=== PATIENT | male | born 1990 | race Caucasian/White ===

== ENCOUNTER 2020-05-04 15:11 | Emergency (ER) | payer SELFPAY ==
[~2020-05-04] VITALS: Ht 175.3 cm; Wt 77.3 kg
[~2020-05-04 15:11] MED LIST: CEPHALEXIN500 M1 PO; DOXYCYCLINE 10100 MG PO; FLEXERIL10 MG PO; HYDROCODONE BIT1 TA3 PO; LORTAB 5/500 501 TAB PO; MOTRIN 600600 MG/TAB PO; MOTRIN 800800 MG/TAB PO; NAPROXEN EC500 MG PO; NO HOME MEDICATIONS; ZITHROMAX Z PA250 MG PO
[2020-05-04 15:41] VITALS: TEMP 98.6
[2020-05-04] MEDS ORDERED: PERCOCET 325 MG1 TA2 PO ×2 (19:02→19:16)
[2020-05-04] MEDS ORDERED: AMOXICILLIN 50500 MG PO ×3 (19:02→19:29)
[2020-05-04] MEDS ORDERED: NAPROSYN500 MG PO ×3 (19:24→19:29)
[2020-05-04 19:35] VITALS: BP 130/64; PULSE 107
== END 2020-05-04 19:35 | disposition home or self-care (01) ==
LOC: COL.ER 15:11
DX: K08.89 Other specified disorders of teeth and supporting structures (principal); K03.81 Cracked tooth; F17.210 Nicotine dependence, cigarettes, uncomplicated

== ENCOUNTER 2020-06-05 21:07 | Emergency (ER) | payer SELFPAY ==
[~2020-06-05] VITALS: Ht 175.3 cm; Wt 84.1 kg
[~2020-06-05 21:07] MED LIST changes: +AMOXICILLIN 50500 MG PO; +NAPROSYN500 MG PO; +PERCOCET 325 MG1 TA2 PO
[2020-06-05 21:14] VITALS: TEMP 98.3
[2020-06-05 22:19] LABS: COLLECTION METHOD CLEAN CATCH
[2020-06-05 22:24] LABS: BASO % 0.3 % (0.0-2.0); EOS # 0.2 (0.0-0.7); EOS % 1.4 % (0-4.0); GRAN # 6.1 (1.4-6.5); GRAN % 57.2 % (42.2-75.2); HEMATOCRIT 44.6 % (42.0-52.0); HEMOGLOBIN 14.9 g/dl (13.5-18.0); LYMPH # 3.4 (1.2-3.4); MEAN CELL VOLUME 91 fl (80.0-100.0); MEAN CORPUSCULAR HEMOGLOBIN 31 pg (27.0-31.0); MEAN CORPUSCULAR HGB CONC 33 g/dl (33.0-37.0); MEAN PLATELET VOLUME 10.3 fl (7.4-10.4); MONO # 0.8 (0.1-0.6); MONO % 7.8 % (1.7-9.3); PLATELET COUNT 309 K/mm3 (130-400); RED BLOOD COUNT 4.89 M/mm3 (4.20-5.60); REDCELL DISTRIBUTION WIDTH-CV 13.2 % (11.5-14.5)
[2020-06-05 22:26] LABS: PH 5 (5-8); SQUAMOUS EPITHELIAL None Seen /hpf; URINE APPEARANCE Clear; URINE BACTERIA None Seen /hpf; URINE BILIRUBIN Negative (NEGATIVE); URINE BLOOD Negative (NEGATIVE); URINE COLOR Straw; URINE GLUCOSE Negative (NEGATIVE); URINE KETONE Negative (NEGATIVE); URINE LEUKOCYTE ESTERASE Negative (NEGATIVE); URINE NITRATE Negative (NEGATIVE); URINE PROTEIN(semi-quant) Negative (NEGATIVE); URINE RBC 0-2 /hpf; URINE UROBILINOGEN Negative (NEGATIVE)
[2020-06-05 22:37] LABS: ALCOHOL(ethanol),MEDICAL 146 mg/dL
[2020-06-05 22:39] LABS: BLOOD UREA NITROGEN 15 mg/dL (9-20); CREATININE, serum 0.9 (0.66-1.25); GLUCOSE 132 mg/dL (74-106); POTASSIUM 4.4 mmol/L (3.4-5.0); SODIUM 141 mmol/L (137-145)
[2020-06-05 22:40] LABS: CARBON DIOXIDE 30 mmol/L (22-30); CHLORIDE 101 mmol/L (98-107)
[2020-06-05 22:41] LABS: ALBUMIN 4.4 gm/dL (3.5-5.0); BILIRUBIN,TOTAL 0.5 mg/dL (0.0-1.0); CALCIUM 9.2 mg/dL (8.4-10.2); TOTAL PROTEIN 7.8 gm/dL (6.4-8.2)
[2020-06-05 22:42] LABS: ALANINE AMINOTRANSFERASE 32 U/L (4-49); ALKALINE PHOSPHATASE 97 U/L (50-136); AST,SGOT 36 U/L (15-37)
[2020-06-05 22:43] LABS: ACETAMINOPHEN < 10 ug/mL (10-30); SALICYLATE < 1.0 mg/dL
[2020-06-05 22:44] LABS: ANION GAP 10 mmol/L (7-16); TRICYCLIC ANTIDEPRESS URINE NEGATIVE
[2020-06-06] MEDS ORDERED: BACTRIM DS 8001 TAB PO (03:04)
[2020-06-06 03:27] VITALS: BP 123/81; PULSE 102
== END 2020-06-06 03:27 ==
LOC: COL.ER 21:07
PROVIDERS: Emergency Medicine
DX: R45.851 Suicidal ideations (principal); Z79.1 Long term (current) use of non-steroidal anti-inflammatories (NSAID); Z79.2 Long term (current) use of antibiotics

== ENCOUNTER 2021-04-08 14:28 | Inpatient (IN) | payer SELFPAY ==
[~2021-04-08] VITALS: Ht 175.3 cm; Wt 77.3 kg
[~2021-04-08 14:28] MED LIST changes: +BACTRIM DS 8001 TAB PO
[2021-04-08 15:22] LABS: BASO % 0.2 % (0.0-2.0); EOS # 0.1 K/mm3 (0.0-0.7); EOS % 1.1 % (0-4.0); GRAN # 8.7 K/mm3 (1.4-6.5); GRAN % 71.7 % (42.2-75.2); HEMATOCRIT 41.9 % (42.0-52.0); HEMOGLOBIN 13.6 g/dl (13.5-18.0); LYMPH % 16.1 % (20.0-51.0); MEAN CELL VOLUME 93 fl (80.0-100.0); MEAN CORPUSCULAR HEMOGLOBIN 30 pg (27.0-31.0); MEAN CORPUSCULAR HGB CONC 33 g/dl (33.0-37.0); MONO # 1.3 K/mm3 (0.1-0.6); MONO % 10.7 % (1.7-9.3); PLATELET COUNT 338 K/mm3 (130-400); RED BLOOD COUNT 4.53 M/mm3 (4.20-5.60); REDCELL DISTRIBUTION WIDTH-CV 12.9 % (11.5-14.5)
[2021-04-08 15:38] LABS: ALBUMIN 3.5 gm/dL (3.5-5.0); CALCIUM 9.8 mg/dL (8.4-10.2); CREATININE, serum 1.19 mg/dL (0.72-1.25); POTASSIUM 3.8 mmol/L (3.5-4.5); TOTAL PROTEIN 7.5 gm/dL (6.2-8.1)
[2021-04-08 16:11] LABS: C-REACTIVE PROTEIN 3.41 mg/dL (0.00-0.50)
[2021-04-08 16:25] LABS: ERYTHROCYTE SEDIMENTATION RATE 28 mm/hr (0-15)
[2021-04-08 21:15] VITALS: BP 123/80; PULSE 72
--- NOTE | 2021-04-08 21:20 | NUR ---
Transferred to medical floor from PACU- had I&D of right hand abcess- right hand /arm wrapped in gauze/cosme wrap, clean dry and intact, can move fingers slowly- CMS good, patient yelling out loudly in severe pain- states pain 03/24- did put right hand up on pillow and put ice to right hand-patient would not let me touch his hand- screaming for pain meds-- will call and get an IV pain med,,has not had any po yet,,, IV of LR running- just to finish this bag from OR
[2021-04-08 21:30] VITALS: BP 129/90; PULSE 66; TEMP 98
--- NOTE | 2021-04-08 21:45 | NUR ---
Did get order for IV morphine- given, pt did fall back asleep between times I was in the room-
--- NOTE | 2021-04-08 21:51 | NUR ---
Vancomycin Initial Dosing Pharmacy Note Ordering provider: GUIDO BAY J., DO Indication/duration: R HAND ABCESS PERTINENT PMH: METH IVDA GOAL: 15-20 DOSING HX: NOT APPLICABLE 2/2 DIFFERENCE IN RENAL FUNCTION (SCR AT TIME OF LAST VANC TROUGH LEVEL, 0.68 ON 12/26/14) BMI: 25.2 WT: 77.3 SCR: 1.19 ESTCRCL~97 ML/MIN T1/2 ~ 8H TMAX: 99 WBC: 12.2 ESR: 28 LA: 1.8 CRP: 3.41 MICRO IN PROCESS RH XR REPORTING OSTEOARTHRITIS OF 1ST CARPAL AND METACARPAL JOINT RH EXTREMITY ULTRASOUND REPORTING 1. Extensively heterogeneous hypoechoic tissue in the deep soft tissues in the region of the thenar eminence of the right hand. Despite a component of internal blood flow, the lesion is favored for phlegmonous soft tissue or developing abscess. Alternate etiology is thought significantly less likely. Correlate with clinical history. Ultrasound-guided aspiration may be of assistance for further evaluation. WILL LOAD PT WITH 1.5GM X1 (~19 MG/KG). WILL THEN START A MAINTENANCE REGIMEN OF 1 GM Q8H. WILL FOLLOW RENAL FUNCTION, MICRO, AND CARE PLAN FOR NEED TO ADJUST THERAPY. THANK YOU FOR THIS DOSING CONSULT!
[2021-04-08 22:00] VITALS: BP 127/85; PULSE 80
--- NOTE | 2021-04-08 22:10 | NUR ---
Yelling loudly out in pain, will call Janneth SCHROEDER for orders.
--- NOTE | 2021-04-08 22:20 | NUR ---
Additional IV Morphine given at this time-- did have patient do some C@DB, VSS, Continue with ice to right hand. Did take a few sips of water
[2021-04-08 22:30] VITALS: BP 131/88; PULSE 74; TEMP 98.2
[2021-04-08 23:30] VITALS: BP 123/75; PULSE 98; TEMP 98
--- NOTE | 2021-04-08 23:55 | NUR ---
Patient thrashing around in bed -yelling he is in severe pain to right hand-- will give the morphine as ordered, did do some DB@C, Right hand up on pillow/ice to hand.
[2021-04-09 00:14] VITALS: BP 130/84; PULSE 86; TEMP 99.3
[2021-04-09 03:35] VITALS: BP 136/68; PULSE 73; TEMP 99
--- NOTE | 2021-04-09 04:03 | NUR ---
Has been resting/sleeping for the past 3-4 hours- has not required pain meds, recent temp is 99.0
--- NOTE | 2021-04-09 06:45 | NUR ---
Awake- up to bathroom- steady on feet, voided large amount of urine- speciment sent to lab. States pain 10/ to right hand- will give Morphine and Roxicodone as ordered for pain control-- requesting snacks -crackers/ice cream
[2021-04-09 06:49] LABS: BASO % 0.2 % (0.0-2.0); EOS # 0.1 K/mm3 (0.0-0.7); EOS % 0.8 % (0-4.0); GRAN # 8.9 K/mm3 (1.4-6.5); GRAN % 67.8 % (42.2-75.2); HEMATOCRIT 40.7 % (42.0-52.0); HEMOGLOBIN 13.3 g/dl (13.5-18.0); LYMPH # 2.6 K/mm3 (1.2-3.4); LYMPH % 19.7 % (20.0-51.0); MEAN CELL VOLUME 91 fl (80.0-100.0); MEAN CORPUSCULAR HEMOGLOBIN 30 pg (27.0-31.0); MEAN CORPUSCULAR HGB CONC 33 g/dl (33.0-37.0); MONO # 1.5 K/mm3 (0.1-0.6); MONO % 11.1 % (1.7-9.3); PLATELET COUNT 299 K/mm3 (130-400); RED BLOOD COUNT 4.46 M/mm3 (4.20-5.60); REDCELL DISTRIBUTION WIDTH-CV 12.7 % (11.5-14.5)
[2021-04-09 07:08] LABS: CALCIUM 9.4 mg/dL (8.4-10.2); CREATININE, serum 1.01 mg/dL (0.72-1.25); POTASSIUM 4.1 mmol/L (3.5-4.5)
[2021-04-09 07:27] VITALS: BP 129/77; PULSE 100; TEMP 98
--- NOTE | 2021-04-09 10:04 | NUR ---
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 Shelver spoke with him about his desisre to change his life and how to talk with God about His help. Patient thanked Shelver for visit.
--- NOTE | 2021-04-09 10:07 | NUR ---
Initial visit; Patient thanked Ballpoint Pen Assembly Machine Operator for listening and offering Spiritual Care regarding his drug use and life style while living in the streets.
[2021-04-09 11:21] VITALS: BP 133/79; PULSE 86; TEMP 97.7
[2021-04-09 11:35] LABS: TRICYCLIC ANTIDEPRESS URINE NEGATIVE
[2021-04-09 15:27] VITALS: BP 134/83; PULSE 84; TEMP 98.7
--- NOTE | 2021-04-09 16:33 | NUR ---
SW met with the patient to discuss discharge plan. The patient was living in [place] with his father, José (ph#[phone]), but they had a falling out. He states that he has been homeless since then and staying out on the streets. He reports that he has been to the [facility], but believes that he is banned there now. He reports independence with ADLs and does not have any DME. The patient does not have a PCP. He confirms that he is self pay. SW to consult Financial Counseling. MICHELLE discussed getting set up at the [facility] for primary care upon discharge. The patient was agreeable this. The patient does not have a DPOA-HC and he was not interested in completing one at this time. The patient reports that he is not and that he has a 10 month old. He states that his mother is . SW informed him how if father is his next of kin. The patient verbalized understanding. The patient is interested in SW contacting the [facility] to see if he can return there. He reports that he would rather stay out in the streets, then return back to his father's house. SW to contact [facility]. The patient has a history of meth use. He reports that he last used two days ago. MICHELLE discussed inpatient/outpatient treatment. He reports that he has been to inpatient treatment in the past, but is not interested in either at this time. He reports that he is [id number] and can start making better decisions for himself. SW to continue to follow.
[2021-04-09 19:18] VITALS: BP 124/86; PULSE 87; TEMP 98.6
--- NOTE | 2021-04-09 21:27 | NUR ---
PT SITTING UP IN BED COMPLAINING OF RIGHT HAND PAIN. PT PLEASANT AND COOPERATIVE. THIS RN ASKED CARLOS SALAS TO GIVE MEDICATION FOR PAIN. NO OTHER NEEDS AT THIS TIME. CALL LIGHT IN REACH.
[2021-04-10 04:34] VITALS: BP 116/74; PULSE 99; TEMP 97.7
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
[2021-04-10 06:56] LABS: BASO % 0.3 % (0.0-2.0); EOS # 0.2 K/mm3 (0.0-0.7); EOS % 1.5 % (0-4.0); GRAN # 7.5 K/mm3 (1.4-6.5); GRAN % 66.1 % (42.2-75.2); HEMATOCRIT 39.7 % (42.0-52.0); HEMOGLOBIN 13.4 g/dl (13.5-18.0); LYMPH # 2.4 K/mm3 (1.2-3.4); LYMPH % 21.3 % (20.0-51.0); MEAN CELL VOLUME 90 fl (80.0-100.0); MEAN CORPUSCULAR HEMOGLOBIN 31 pg (27.0-31.0); MEAN CORPUSCULAR HGB CONC 34 g/dl (33.0-37.0); MEAN PLATELET VOLUME 10.6 fl (7.4-10.4); MONO # 1.2 K/mm3 (0.1-0.6); MONO % 10.3 % (1.7-9.3); PLATELET COUNT 318 K/mm3 (130-400); REDCELL DISTRIBUTION WIDTH-CV 12.4 % (11.5-14.5)
--- NOTE | 2021-04-10 07:00 | NUR ---
Report received from CARLOS Fam. PTin bed resting, eyes clsoed, will continue to monitor.
[2021-04-10 07:11] LABS: CALCIUM 10.2 mg/dL (8.4-10.2); CREATININE, serum 0.98 mg/dL (0.72-1.25)
[2021-04-10 07:53] VITALS: BP 121/69; PULSE 88; TEMP 98.6
--- NOTE | 2021-04-10 10:15 | NUR ---
Assessment charte. RH occlusive dressing is CDI. Otherwise doing well, pRN pain meds provided per request. NPO for MRI of RH. Will conitnue edwar mays.
--- NOTE | 2021-04-10 11:16 | NUR ---
First visit from the career transition specialist. Patient asked for a bible. Collections Representative delivered a bible no other needs right now.
--- NOTE | 2021-04-10 12:38 | NUR ---
Called Dr. Maki regarding NPO status. Pt not to eat or drink until she comes and talks to him.
--- NOTE | 2021-04-10 15:03 | NUR ---
MICHELLE contacted Lia at [facility] and secured the patient an appointment there on 04/23 at [id number]. MICHELLE will need to fax the patient's records and orders to them at [phone]. MICHELLE notified the director of community education of the appointment. MICHELLE contacted Kaye at [facility]. Kaye confirms that the patient has a lifetime ban from returning back there.
[2021-04-10 16:13] VITALS: BP 113/71; PULSE 91; TEMP 98.9
[2021-04-10 19:04] VITALS: BP 124/98; PULSE 95; TEMP 98.6
--- NOTE | 2021-04-10 20:00 | NUR ---
Initial shift assessment done- right hand/arm with dressing intact,dry- no drainage seen. Good CMS to fingers. Pt requesting his pain pills at this time-requesting lots of soda/snacks etc, IV fluids of NS at 75cc/hr. Continues with the IV Zosyn and IV Vancomycin.
[2021-04-11 00:05] VITALS: BP 111/62; PULSE 75; TEMP 98.7
[2021-04-11 04:00] VITALS: BP 127/73; PULSE 78; TEMP 98.1
[2021-04-11 06:40] LABS: BASO % 0.4 % (0.0-2.0); EOS # 0.2 K/mm3 (0.0-0.7); EOS % 2.7 % (0-4.0); GRAN % 51.1 % (42.2-75.2); HEMATOCRIT 37.7 % (42.0-52.0); HEMOGLOBIN 12.6 g/dl (13.5-18.0); LYMPH # 2.7 K/mm3 (1.2-3.4); LYMPH % 34.3 % (20.0-51.0); MEAN CELL VOLUME 89 fl (80.0-100.0); MEAN CORPUSCULAR HEMOGLOBIN 30 pg (27.0-31.0); MEAN CORPUSCULAR HGB CONC 33 g/dl (33.0-37.0); MEAN PLATELET VOLUME 10.3 fl (7.4-10.4); MONO # 0.9 K/mm3 (0.1-0.6); MONO % 11.1 % (1.7-9.3); PLATELET COUNT 325 K/mm3 (130-400); RED BLOOD COUNT 4.22 M/mm3 (4.20-5.60); REDCELL DISTRIBUTION WIDTH-CV 12.5 % (11.5-14.5)
--- NOTE | 2021-04-11 06:45 | NUR ---
Did sleep for about 4-5 hours- did then wake up in extreme pain to right hand- roxicodone was given, also requested Toradol-- was given also ,, very labile with his emotions--angry,swearing, then laughing-joking within minutes.
[2021-04-11 07:01] LABS: ALBUMIN 2.5 gm/dL (3.5-5.0); CALCIUM 9.5 mg/dL (8.4-10.2); CREATININE, serum 1.16 mg/dL (0.72-1.25); MAGNESIUM 1.7 mg/dL (1.6-2.6); PHOSPHOROUS 4.5 mg/dL (2.3-4.7); POTASSIUM 4.6 mmol/L (3.5-4.5)
--- NOTE | 2021-04-11 07:59 | NUR ---
Right hand wrapped. Patient unable to squeeze hands. Capillary refill <3 seconds bilaterally.
[2021-04-11 08:04] VITALS: BP 127/68; PULSE 93; TEMP 98.6
--- NOTE | 2021-04-11 09:33 | NUR ---
PT ALERT AND ORIENTED, SLEEPING UPON ENTRY. PT SLIGHTLY DROWSY IN AM. PT REQUESTING PAIN MEDICATION, STATES PAIN IS 10/10. PT LABILE MOODS, AGITATED. PT HAS RIGHT HAND WRAPPED, DISCUSSED WITH ORTHO THIS AM. PT ABLE TO WIGGLE RIGHT HAND FINGERS, NUMBNESS NOTED IN FINGERS, SPECIFICALLY RIGHT MIDDLE FINGER. CAP REFILL <3S IN HAND. PT PULSES 2+ IN BLE BILATERALLY, LEFT RADIAL, AND RIGHT BRACHIAL. UNABLE TO ACCURRATELY ASSESS RIGHT RADIAL DUE TO DRESSING. PT HAS CLEAR LUNG SOUNDS, SOME COARSE EXPIRATION NOTED IN ALL LOBES. PT IS INDEPENDENT IN ROOM, NO FURTHER NEEDS AT THIS TIME.
--- NOTE | 2021-04-11 10:03 | NUR ---
SW attended clinical rounds. Plan is to consult ID for antibiotic recommendations. SW met with the patient to follow up and update about [facility] and how he is banned for life at [facility]. The patient verbalized understanding. The patient states that him and his buddies have a campsite near [facility], near where [facility] is. MICHELLE informed him that there is homeless shelters in the [facility] area. The patient reports that he does not want to try those shelters. He states that he wants to stay in his hometown and that he plans on [facility] upon discharge.
--- NOTE | 2021-04-11 12:41 | NUR ---
VERIFIED WITH PHARMACY, IV ANTIBIOTICS COMPATIBLE AT THE CURRENT CONCENTRATIONS.
--- NOTE | 2021-04-11 13:05 | NUR ---
NOTIFIED UNRULY EDMONDS OF PATIENT IRRIATION AND QUESTIONS ABOUT PAIN MEDICATIONS.
--- NOTE | 2021-04-11 13:20 | NUR ---
PT STATES PAIN IS 10/10 IN RIGHT ARM AFTER WAKING UP.
[2021-04-11 13:21] VITALS: BP 137/88; PULSE 84; TEMP 98.7
--- NOTE | 2021-04-11 14:14 | NUR ---
Primary nurse was assisted with [phone] patient care by [employer] [employer] student Timbo Ferreira and [facility] instructor Dolores June MSN, RN
[2021-04-11 15:05] VITALS: BP 137/117; PULSE 111; TEMP 98
--- NOTE | 2021-04-11 18:07 | NUR ---
PT CONTINUING ON PLAN OF CARE. PT RECEIVING IV ABX PER ORDERS TO MANAGE INFECTION. PT PAIN REPORTED 9-10/10 THROUGHOUT DAY. MANAGED WITH PRN MEDICATIONS PER ORDERS. PT LABILE MOODS THROUGHOUT SHIFT. PT ABLE TO AMBULATE INDEPENDENTLY. PT VITAL SIGNS STABLE AT THIS TIME.
--- NOTE | 2021-04-11 19:25 | NUR ---
Patient called for pain medications. This nurse to room with hydrocodone one tab as ordered. Patient yelling, punching bed and cursing stating he fell asleep for four hours and didnt receive any pain meds that whole time and he was suppose to. This nurse tried to give patient hydrocodone but he through it across the room. This nurse was unable to get a word in to discuss plan of care for pain management as patient continues to scream and talk over me. States "shut the fuck up I want to see a doctor now." Patient stood up and started coming towards this nurse when I told him I was leaving the room and would contact the Hospitalist operator receptionist this shift as well as security. AMAIRANI Jackman notified of incident and this nurse and Augustina at bedside to try to discuss plan of care. Continued to talk over both of us. Finally was able to explain the plan of care and new orders were received to give hydrocodone one tab/oxycodone 2 tabs now. Will continue to monitor.
--- NOTE | 2021-04-11 20:10 | NUR ---
Pt continues to be agitated and hostile. Refusing assessment. Abbreviated assessment done visually. Continues to c/o pain. Will go from joking to cursing within seconds. Does not want MRSA swab completed.
[2021-04-11 20:30] VITALS: BP 129/73; PULSE 85; TEMP 98.8
--- NOTE | 2021-04-12 00:30 | NUR ---
Resting eyes closed. No s/s of pain noted. Will monitor.
[2021-04-12 05:41] VITALS: BP 129/86; PULSE 71; TEMP 98.4
--- NOTE | 2021-04-12 05:47 | NUR ---
Called requesting pain medications. Oxycodone [address] order for pain rated 10/10 on pain scale to right hand.
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
[2021-04-12 07:09] LABS: BASO # 0.1 K/mm3 (0.0-0.2); BASO % 0.7 % (0.0-2.0); EOS # 0.3 K/mm3 (0.0-0.7); EOS % 3.2 % (0-4.0); GRAN # 5.2 K/mm3 (1.4-6.5); GRAN % 59.3 % (42.2-75.2); HEMATOCRIT 38.3 % (42.0-52.0); HEMOGLOBIN 12.8 g/dl (13.5-18.0); LYMPH # 2.4 K/mm3 (1.2-3.4); LYMPH % 27.1 % (20.0-51.0); MEAN CELL VOLUME 89 fl (80.0-100.0); MEAN CORPUSCULAR HEMOGLOBIN 30 pg (27.0-31.0); MEAN CORPUSCULAR HGB CONC 33 g/dl (33.0-37.0); MEAN PLATELET VOLUME 10.1 fl (7.4-10.4); MONO # 0.8 K/mm3 (0.1-0.6); PLATELET COUNT 345 K/mm3 (130-400); REDCELL DISTRIBUTION WIDTH-CV 12.5 % (11.5-14.5)
[2021-04-12 07:17] LABS: CREATININE, serum 0.97 mg/dL (0.72-1.25); POTASSIUM 4.4 mmol/L (3.5-4.5)
[2021-04-12 07:32] VITALS: BP 92/64; PULSE 75; TEMP 98.9
--- NOTE | 2021-04-12 08:24 | NUR ---
Patient has been very pleasant so far this morning. Patient requested PRN pain medication, norco was given. Nicotine patch replaced. Patient wanting to go outside and smoke but knows that he is unable to do so. Patient very fidgety and is currently walking around the unit.
[2021-04-12 11:55] VITALS: BP 91/52; PULSE 89; TEMP 98.3
[2021-04-12] MEDS ORDERED: NORCO 325 MG-51 TAB PO (14:26)
[2021-04-12] MEDS ORDERED: DOXYCYCLINE HY100 MG PO (14:29)
[2021-04-12] MEDS ORDERED: AMOXICILLIN 8751 TAB PO (14:29)
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
[2021-04-12] MEDS ORDERED: IBU400 MG PO (18:13)
== END 2021-04-12 18:25 | disposition left against medical advice (07) | DRG 603 ==
LOC: COL.ER 14:28 → MEDICAL 15:49
PROVIDERS: Emergency Medicine; Internal Medicine; Orthopaedic Surgery; Physician Assistant; ADMIT Internal Medicine
PROC: 0J9J0ZZ Drainage of Right Hand Subcutaneous Tissue and Fascia, Open Approach (ICD-10-PCS; principal; 2021-04-08 19:30)
DX: L02.511 Cutaneous abscess of right hand (principal); L03.113 Cellulitis of right upper limb; F17.210 Nicotine dependence, cigarettes, uncomplicated; F15.10 Other stimulant abuse, uncomplicated
CPT/HCPCS: 99223-AI; 99231-AI; 99232-AI; 99239; A9585; J1885; J2270; J2543; J3010; J3370; J7030; J7050

== ENCOUNTER 2021-04-13 11:28 | Emergency (ER) | payer SELFPAY ==
[~2021-04-13] VITALS: Ht 175.3 cm; Wt 77.3 kg
[~2021-04-13 11:28] MED LIST changes: +AMOXICILLIN 8751 TAB PO; +DOXYCYCLINE HY100 MG PO; +IBU400 MG PO; +NORCO 325 MG-51 TAB PO
[2021-04-13 11:42] VITALS: TEMP 97.1
[2021-04-13 13:09] VITALS: BP 123/86; PULSE 98
== END 2021-04-13 13:10 | disposition home or self-care (01) ==
LOC: COL.ER 11:28
DX: S60.511A Abrasion of right hand, initial encounter (principal); L03.113 Cellulitis of right upper limb; X58.XXXA Exposure to other specified factors, initial encounter

== ENCOUNTER 2021-04-27 16:55 | Emergency (ER) | payer SELFPAY ==
[~2021-04-27] VITALS: Ht 175.3 cm; Wt 77.3 kg
[2021-04-27 16:57] VITALS: BP 121/74; PULSE 111; TEMP 100.5
[2021-04-27 17:28] LABS: HEMATOCRIT 39.9 % (42.0-52.0); HEMOGLOBIN 13.6 g/dl (13.5-18.0); MEAN CELL VOLUME 87 fl (80.0-100.0); MEAN CORPUSCULAR HEMOGLOBIN 30 pg (27.0-31.0); MEAN CORPUSCULAR HGB CONC 34 g/dl (33.0-37.0); MEAN PLATELET VOLUME 9.7 fl (7.4-10.4); PLATELET COUNT 217 K/mm3 (130-400); REDCELL DISTRIBUTION WIDTH-CV 12.3 % (11.5-14.5)
[2021-04-27 17:35] LABS: COLLECTION METHOD CATHETER
[2021-04-27 17:45] LABS: MUCOUS Present /lpf; PH 6 (5-8); SQUAMOUS EPITHELIAL 0-2 /hpf; URINE APPEARANCE Hazy; URINE BACTERIA Rare /hpf; URINE BILIRUBIN Negative (NEGATIVE); URINE BLOOD Negative (NEGATIVE); URINE COLOR Yellow; URINE GLUCOSE 3+ (NEGATIVE); URINE KETONE Trace (NEGATIVE); URINE LEUKOCYTE ESTERASE Negative (NEGATIVE); URINE NITRATE Negative (NEGATIVE); URINE PROTEIN(semi-quant) Negative (NEGATIVE); URINE RBC 0-2 /hpf; URINE UROBILINOGEN Negative (NEGATIVE)
[2021-04-27 17:49] LABS: TRICYCLIC ANTIDEPRESS URINE NEGATIVE
[2021-04-27 17:50] LABS: ALBUMIN 3.8 gm/dL (3.5-5.0); CALCIUM 9.6 mg/dL (8.4-10.2); CREATININE, serum 0.95 mg/dL (0.72-1.25); POTASSIUM 3.9 mmol/L (3.5-4.5); TOTAL PROTEIN 7.4 gm/dL (6.2-8.1)
[2021-04-27 17:56] LABS: TROPONIN-I 0.016 ng/mL (0.00-0.033)
[2021-04-27 18:08] LABS: BAND 8 % (0-10); LYMPHOCYTE 7 % (20.0-51.0); NEUTROPHILS 84 % (42.0-75.2); PLATELET ESTIMATE NORMAL (NORMAL)
== END 2021-04-27 21:11 | disposition home or self-care (01) ==
LOC: COL.ER 16:55
PROVIDERS: Physician Assistant
DX: F15.10 Other stimulant abuse, uncomplicated (principal); R00.0 Tachycardia, unspecified; R07.89 Other chest pain; F17.210 Nicotine dependence, cigarettes, uncomplicated
CPT/HCPCS: J7030